=== PATIENT | female | born 1970 | race Caucasian/White ===

== ENCOUNTER 2017-03-25 16:57 | Inpatient (IN) | payer OTHER ==
[~2017-03-25] VITALS: Ht 162.6 cm; Wt 56.7 kg
[~2017-03-25 16:57] MED LIST: ACETAMINOPHN-T1 EACH PO; ALBUTEROL SULF8.5 GM IH; BISACODYL5 MG PO; CELEXA10 MG PO; CIPRO500 MG PO; CITALOPRAM HBR10 MG PO; CITALOPRAM HBR20 MG PO; DESYREL100 MG PO; DESYREL12.5 MG PO; KENALOG,ARISTOC15 GM TP; KENALOG,ARISTOC80 GM TP; LEXAPRO10 MG PO; LEXAPRO20 MG PO; MULTI COMPLETE1 EACH PO; NAPROXEN500 MG PO; NOHOMEMEDS; PERCOCET 5/31 TABLET PO; PREDNISONE20 MG PO; PROVENTIL17 G1 IH; RISPERIDONE0.25 MG PO; TRAZODONE HCL50 MG PO; TYLENOL REGULA325 MG PO; VENTOLIN HFA18 GM IH; ZANAFLEX4 M1 PO; ZOLPIDEM TARTRAT5 MG PO; unable to obtain
[2017-03-25 18:26] LABS: EOSINOPHIL (%) 0.5 % (0-5); HEMATOCRIT 36.3 % (36.0-46.0); IMMATURE GRANULOCYTE (%) 0.2 % (0.0-0.7); INSTRUMENT ABS NEUTROPHIL CT 2.4 K/uL; LYMPHOCYTE COUNT 2.8 K/uL (1.0-2.8); MCH 29.2 PG (29.0-34.0); MCHC 33.9 G/DL (30.0-36.0); MCV 86.2 FL (83-99); MEAN PLAT.VOLUME 9.5 uM^3 (9.5-12.4); MONOCYTE (%) 6.4 % (3-12); MONOCYTE COUNT 0.4 K/uL (0-0.8); NEUTROPHIL (%) 42.4 % (45-76); NEUTROPHIL COUNT 2.4 K/uL (1.8-6.4); PLATELET COUNT 275 K/uL (156-360); RBC DIS.WIDTH-CV 14.4 % (11.8-14.6); RBC DIS.WIDTH-SD 45.5 % (39-53); RED BLOOD COUNT 4.21 M/uL (3.80-5.20); WHITE BLOOD COUNT 5.7 K/uL (4.1-10.2)
[2017-03-25 18:41] LABS: CHLORIDE 111 mEq/L (99-109); POTASSIUM 3.6 mEq/L (3.7-5.4); SODIUM 144 mEq/L (136-147)
[2017-03-25 18:43] LABS: GLUCOSE 84 mg/dL (70-99)
[2017-03-25 18:44] LABS: ANION GAP 13 MEQ/L (2-14)
[2017-03-25 18:46] LABS: SERUM ETHYL ALCOHOL 294 mg/dL
[2017-03-25 18:47] LABS: GFR ESTIMATE (CALCULATED) > 59 mL/min/
[2017-03-25 18:48] LABS: UREA NITROGEN (BUN) 7 mg/dL (9-23)
[2017-03-25 21:47] LABS: AMPHETAMINE NEGATIVE (500 ng/mL); BARBITURATES NEGATIVE (200 ng/mL); BENZODIAZEPINES NEGATIVE (150 ng/mL); COCAINE NEGATIVE (150 ng/mL); INTERNAL CONTROLS VALID? YES; METHADONE NEGATIVE (200 ng/mL); METHAMPHETAMINE NEGATIVE (500 ng/mL); OPIATES (MORPHINE) NEGATIVE (100 ng/mL); OXYCODONE NEGATIVE (100 ng/mL); PHENCYCLIDINE NEGATIVE (25 ng/mL); PROPOXYPHENE NEGATIVE (300 ng/mL); THC CANNABINOIDS NEGATIVE (50 ng/mL); TRICYCLIC ANTIDEPRESSANTS NEGATIVE (300 ng/mL)
[2017-03-26] MEDS ORDERED: TRAZODONE HCL50 MG PO (03:51)
[2017-03-26 05:41] VITALS: BP 133/74
[2017-03-26 07:33] VITALS: BP 139/73
[2017-03-26 15:40] VITALS: BP 116/66
[2017-03-27 07:38] VITALS: BP 104/64
[2017-03-27] MEDS ORDERED: CITALOPRAM HBR10 MG PO (11:14)
== END 2017-03-27 13:15 | disposition home or self-care (01) | DRG 881 ==
LOC: EME 16:57 → EDOF 03-26 04:08 → 1WEST 03-26 05:18
PROVIDERS: Emergency Medicine
DX: F32.9 Major depressive disorder, single episode, unspecified (principal); R45.851 Suicidal ideations; Z59.0 Homelessness; Z81.8 Family history of other mental and behavioral disorders; Z56.0 Unemployment, unspecified; F10.129 Alcohol abuse with intoxication, unspecified; J45.909 Unspecified asthma, uncomplicated; F17.200 Nicotine dependence, unspecified, uncomplicated; F12.10 Cannabis abuse, uncomplicated
CPT/HCPCS: 71010; 80048; 85025; 90839; 99281; 99285; G0480

== ENCOUNTER 2017-04-03 18:09 | Emergency (ER) | payer OTHER ==
[~2017-04-03] VITALS: Ht 162.6 cm; Wt 58.7 kg
[2017-04-03 18:37] VITALS: BP 11/69
[2017-04-03] MEDS ORDERED: BACTRIM,SEPT1 TABLET PO (18:39)
[2017-04-03] MEDS ORDERED: KENALOG,ARISTOC80 GM TP (18:39)
== END 2017-04-03 19:11 | disposition home or self-care (01) ==
LOC: EME 18:09
DX: S50.861A Insect bite (nonvenomous) of right forearm, initial encounter (principal); S60.861A Insect bite (nonvenomous) of right wrist, initial encounter; S50.361A Insect bite (nonvenomous) of right elbow, initial encounter; W57.XXXA Bitten or stung by nonvenomous insect and other nonvenomous arthropods, initial encounter; Z72.0 Tobacco use; Z88.0 Allergy status to penicillin
CPT/HCPCS: 99281; 99283

== ENCOUNTER 2018-01-14 08:52 | Emergency (ER) | payer OTHER ==
[~2018-01-14] VITALS: Ht 162.6 cm; Wt 56.9 kg
[~2018-01-14 08:52] MED LIST changes: +BACTRIM,SEPT1 TABLET PO
[2018-01-14 09:47] LABS: BASOPHIL (%) 0.2 % (0-1); EOSINOPHIL (%) 0.3 % (0-5); HEMATOCRIT 34.7 % (36.0-46.0); HEMOGLOBIN 11.5 G/DL (11.9-15.5); IMMATURE GRANULOCYTE (%) 0.2 % (0.0-0.7); LYMPHOCYTE (%) 29.8 % (15-42); LYMPHOCYTE COUNT 1.7 K/uL (1.0-2.8); MCH 29.1 PG (29.0-34.0); MCHC 33.1 G/DL (30.0-36.0); MCV 87.8 FL (83-99); MONOCYTE (%) 9.2 % (3-12); MONOCYTE COUNT 0.5 K/uL (0-0.8); NEUTROPHIL (%) 60.3 % (45-76); NEUTROPHIL COUNT 3.5 K/uL (1.8-6.4); PLATELET COUNT 326 K/uL (156-360); RBC DIS.WIDTH-CV 15.2 % (11.8-14.6); RBC DIS.WIDTH-SD 49.1 % (39-53); RED BLOOD COUNT 3.95 M/uL (3.80-5.20); WHITE BLOOD COUNT 5.8 K/uL (4.1-10.2)
[2018-01-14 09:58] LABS: CHLORIDE 106 mEq/L (99-109); POTASSIUM 3.6 mEq/L (3.7-5.4); SODIUM 142 mEq/L (136-147)
[2018-01-14 10:00] LABS: GLUCOSE 98 mg/dL (70-99)
[2018-01-14 10:04] LABS: CREATININE 0.6 mg/dL (0.6-1.3); GFR ESTIMATE (CALCULATED) > 59 mL/min/
[2018-01-14 10:05] LABS: UREA NITROGEN (BUN) 7 mg/dL (9-23)
[2018-01-14 10:12] LABS: QUANTITATIVE HCG < 4.0 MIU/ML
[2018-01-14] MEDS ORDERED: PROVERA,CYCRIN10 MG PO (10:38)
[2018-01-14 10:58] VITALS: BP 121/61
== END 2018-01-14 11:01 | disposition home or self-care (01) ==
LOC: EME 08:52
PROVIDERS: Emergency Medicine
DX: N93.9 Abnormal uterine and vaginal bleeding, unspecified (principal); F17.200 Nicotine dependence, unspecified, uncomplicated; Z98.51 Tubal ligation status; Z88.0 Allergy status to penicillin
CPT/HCPCS: 80048; 84702; 85025; 99281; 99284

== ENCOUNTER 2018-01-25 12:38 | Emergency (ER) | payer OTHER ==
[~2018-01-25] VITALS: Ht 162.6 cm; Wt 55.2 kg
[~2018-01-25 12:38] MED LIST changes: +PROVERA,CYCRIN10 MG PO
[2018-01-25 13:12] LABS: HEMATOCRIT 35.1 % (36.0-46.0); HEMOGLOBIN 12.1 G/DL (11.9-15.5); MCH 29.4 PG (29.0-34.0); MCHC 34.5 G/DL (30.0-36.0); MCV 85.4 FL (83-99); PLATELET COUNT 301 K/uL (156-360); RBC DIS.WIDTH-CV 14.8 % (11.8-14.6); RBC DIS.WIDTH-SD 46.5 % (39-53); RED BLOOD COUNT 4.11 M/uL (3.80-5.20)
[2018-01-25 13:19] LABS: ALBUMIN 4.3 g/dL (3.2-4.8)
[2018-01-25 13:20] LABS: CHLORIDE 100 mEq/L (99-109); POTASSIUM 3.6 mEq/L (3.7-5.4); SODIUM 142 mEq/L (136-147)
[2018-01-25 13:21] LABS: APPEARANCE CLOUDY ((CLEAR)); BILIRUBIN NEGATIVE; BLOOD NEGATIVE; COLOR AMBER ((YELLOW)); GLUCOSE (STRIP) NEGATIVE; KETONES 5; LEUKOCYTES NEGATIVE; NITRITE NEGATIVE; PROTEIN (STRIP) 100; SPECIFIC GRAVITY 1.018 (1.000-1.030)
[2018-01-25 13:22] LABS: GLUCOSE 126 mg/dL (70-99); TOTAL PROTEIN 7.8 g/dL (6.4-8.3)
[2018-01-25 13:24] LABS: TOTAL BILIRUBIN 0.6 mg/dL (0.0-1.0)
[2018-01-25 13:25] LABS: ALKALINE PHOSPHATASE 108 IU/L (3-129)
[2018-01-25 13:26] LABS: CREATININE 0.8 mg/dL (0.6-1.3); GFR ESTIMATE (CALCULATED) > 59 mL/min/
[2018-01-25 13:27] LABS: AST (GOT) 98 IU/L (2-34); UREA NITROGEN (BUN) 8 mg/dL (9-23)
[2018-01-25 13:28] LABS: ALT (GPT) 64 IU/L (3-49)
[2018-01-25 13:29] LABS: LIPASE 22 U/L (1.0-51.0)
[2018-01-25 13:29] LABS: BACTERIA RARE /HPF; CALCIUM OXALATE CRYSTALS 2+ /HPF; EPITHELIAL CELLS 1+ /HPF; MUCUS TRACE /LPF; UCUL ADDED? NO; WHITE BLOOD CELLS 0-5 /HPF (0-5)
[2018-01-25 13:35] LABS: QUANTITATIVE HCG < 4.0 MIU/ML
[2018-01-25 14:13] LABS: SERUM ETHYL ALCOHOL < 10 mg/dL
[2018-01-25] MEDS ORDERED: ZOFRAN ODT4 MG PO (15:47)
[2018-01-25 16:06] VITALS: BP 125/70
== END 2018-01-25 16:08 | disposition home or self-care (01) ==
LOC: EME 12:38
DX: R11.2 Nausea with vomiting, unspecified (principal); Z88.0 Allergy status to penicillin; F17.200 Nicotine dependence, unspecified, uncomplicated; F32.9 Major depressive disorder, single episode, unspecified; J45.909 Unspecified asthma, uncomplicated
CPT/HCPCS: 80053; 81003; 83690; 84702; 85027; 99281; 99284; G0480; J2765; J7030